=== PATIENT | male | born 1960 | race Caucasian/White ===

== ENCOUNTER 2018-07-05 11:56 | Emergency (ER) | payer MEDICAID ==
[2018-07-05] MEDS: ONDANSETRON (ODT) 4 MG TAB ODT (13:34)
[2018-07-05] MEDS: HYDROCODONE/APAP (5/325) TAB PO (13:34)
== END 2018-07-05 13:50 | disposition home or self-care (01) ==
LOC: FTE 11:56
DX: M25.561 Pain in right knee (principal)
CPT/HCPCS: 29505; 73562; 99283-25